=== PATIENT | male | born 1985 | race Caucasian/White ===

== ENCOUNTER 2016-12-14 13:17 | Emergency (ER) | payer SELFPAY ==
[~2016-12-14] VITALS: Ht 172.7 cm; Wt 75.0 kg
[2016-12-14] MEDS ORDERED: ONDANSETRON HCL 4MG/2ML VIAL IV ONE (14:15)
[2016-12-14] MEDS ORDERED: MORPHINE SULFATE 1MG/ML 1ML INJ SYR(NEO) IV ONE (14:15)
[2016-12-14] MEDS ORDERED: KETOROLAC 15MG/ML VIAL IV ONE (14:15)
[2016-12-14] MEDS ORDERED: MORPHINE SULFATE 4 MG/ML CPJ (NOT FOR IM USE) IV NR (14:46)
[2016-12-14 15:32] LABS: BASOPHILS % 0.8 % (0.0-2.0); EOSINOPHILS % 3.8 % (0.0-5.0); HEMATOCRIT. 42.5 % (42.0-52.0); HEMOGLOBIN. 14.4 g/dL (14.0-18.0); LYMPHOCYTES % 29.9 % (20.0-50.0); MEAN CORPUSCULAR HEMOGLOBIN 28.1 pg (28.0-32.0); MEAN CORPUSCULAR VOLUME 82.9 fL (80.0-94.0); MEAN PLATELET VOLUME 7.8 fl (7.4-10.4); MONOCYTES % 7.2 % (2.0-8.0); NEUTROPHILS % 58.3 % (40.0-76.0); PLATELET 327 x1000/uL (130-400); RED BLOOD CELL COUNT 5.13 mill/uL (4.7-6.1); RED CELL DISTRIBUTION WIDTH 13.3 % (11.6-14.6)
[2016-12-14 15:34] LABS: CHLORIDE 104 mEq/L (98-107)
[2016-12-14 15:38] LABS: CARBON DIOXIDE 30 mEq/L (21-32)
[2016-12-14 16:59] VITALS: BP 122/77
== END 2016-12-14 19:06 | disposition home or self-care (01) ==
LOC: ER 14:07
DX: S22.32XA Fracture of one rib, left side, initial encounter for closed fracture (principal); W19.XXXA Unspecified fall, initial encounter; Y93.51 Activity, roller skating (inline) and skateboarding; Y92.89 Other specified places as the place of occurrence of the external cause; Y99.8 Other external cause status
CPT/HCPCS: 36415; 71250; 80053; 85025; 96374; 96375; 99285; J1885; J2270; J2405

== ENCOUNTER 2024-10-04 05:45 | Emergency (ER) | payer MEDICAID, OTHER ==
[~2024-10-04] VITALS: Ht 172.7 cm; Wt 100.0 kg
[2024-10-04 05:53] VITALS: O2SAT 98
[2024-10-04 07:28] LABS: CREATININE 0.9 mg/dL (0.6-1.3)
[2024-10-04 07:29] LABS: UREA NITROGEN BLOOD 9 mg/dL (9-23)
[2024-10-04 07:30] LABS: ASPARTATE AMINOTRANSFERASE 23 IU/L (<34)
[2024-10-04 07:31] LABS: BILIRUBIN DIRECT 0.2 mg/dL (<=3.0); BILIRUBIN TOTAL 0.7 mg/dL (0.1-1.0); PROTEIN TOTAL 7.8 g/dL (6.0-8.3)
[2024-10-04 07:41] LABS: BASOPHILS % 0.4 % (0.0-2.0); EOSINOPHILS % 0.4 % (0.0-5.0); HEMATOCRIT. 41.8 % (42.0-52.0); HEMOGLOBIN. 14.3 g/dL (14.0-18.0); LYMPHOCYTES % 12.0 % (20.0-50.0); MEAN PLATELET VOLUME 7.9 fl (7.4-10.4); MONOCYTES % 4.4 % (2.0-8.0); NEUTROPHILS % 82.8 % (40.0-76.0); PLATELET 281 x1000/uL (130-400); RED BLOOD CELL COUNT 5.05 mill/uL (4.7-6.1); RED CELL DISTRIBUTION WIDTH 13.0 % (11.6-14.6)
[2024-10-04 07:42] LABS: CLARITY URINE CLEAR (CLEAR); COLOR URINE YELLOW (YELLOW); GLUCOSE URINE NEGATIVE (NEGATIVE); KETONES URINE NEGATIVE (NEGATIVE); LEUKOCYTE ESTERASE URINE NEGATIVE (NEGATIVE); NITRITE URINE NEGATIVE (NEGATIVE); OCCULT BLOOD URINE 3+ (NEGATIVE); PH URINE 6.5 (4.5-8.0); PROTEIN URINE NEGATIVE (NEGATIVE); SPECIFIC GRAVITY URINE 1.019 (1.005-1.030); UROBILINOGEN URINE 0.2 E.U./dL (0.2-1.0)
[2024-10-04 08:07] LABS: MUCUS URINE 2+ /lpf (NONE/TRACE); RBC URINE TNTC /hpf (0-2); SQUAMOUS EPITHELIAL CELL URINE RARE /lpf (RARE/1+)
[2024-10-04 08:09] LABS: BACTERIA URINE TRACE; WBC URINE 0-2 /hpf (0-2)
[2024-10-04 08:26] VITALS: BP 130/78; PULSE 80; RESP 18; TEMP 36.9; O2SAT 98
== END 2024-10-04 08:27 | disposition home or self-care (01) ==
LOC: ER 05:45
DX: R10.9 Unspecified abdominal pain (principal); F12.10 Cannabis abuse, uncomplicated; F15.10 Other stimulant abuse, uncomplicated
CPT/HCPCS: 36415; 80048; 80076; 81003; 85025; 99283

== ENCOUNTER 2024-10-09 16:06 | Emergency (ER) | payer OTHER ==
[~2024-10-09] VITALS: Ht 172.7 cm; Wt 99.0 kg
[2024-10-09 16:09] VITALS: O2SAT 97
[2024-10-09 16:16] VITALS: TEMP 36.8; O2SAT 98
[2024-10-09 16:33] LABS: CLARITY URINE CLEAR (CLEAR); COLOR URINE DARK YELLOW (YELLOW); GLUCOSE URINE NEGATIVE (NEGATIVE); KETONES URINE TRACE (NEGATIVE); LEUKOCYTE ESTERASE URINE NEGATIVE (NEGATIVE); NITRITE URINE NEGATIVE (NEGATIVE); OCCULT BLOOD URINE NEGATIVE (NEGATIVE); PH URINE 5.5 (4.5-8.0); PROTEIN URINE TRACE (NEGATIVE); SPECIFIC GRAVITY URINE 1.022 (1.005-1.030); UROBILINOGEN URINE 0.2 E.U./dL (0.2-1.0)
[2024-10-09 17:07] LABS: BASOPHILS % 0.8 % (0.0-2.0); EOSINOPHILS % 1.6 % (0.0-5.0); HEMATOCRIT. 40.9 % (42.0-52.0); HEMOGLOBIN. 13.9 g/dL (14.0-18.0); LYMPHOCYTES % 39.4 % (20.0-50.0); MEAN PLATELET VOLUME 7.4 fl (7.4-10.4); MONOCYTES % 6.2 % (2.0-8.0); NEUTROPHILS % 52.0 % (40.0-76.0); PLATELET 277 x1000/uL (130-400); RED BLOOD CELL COUNT 4.89 mill/uL (4.7-6.1); RED CELL DISTRIBUTION WIDTH 13.0 % (11.6-14.6)
[2024-10-09 17:10] LABS: AMORPHOUS SEDIMENT URINE 2+ /lpf; BACTERIA URINE 2+; RBC URINE 0-2 /hpf (0-2); SQUAMOUS EPITHELIAL CELL URINE FEW /lpf (RARE/1+); WBC URINE NONE SEEN /hpf (0-2)
[2024-10-09 17:34] LABS: CREATININE 0.9 mg/dL (0.6-1.3)
[2024-10-09 17:35] LABS: UREA NITROGEN BLOOD 8 mg/dL (9-23)
[2024-10-09 17:36] LABS: ASPARTATE AMINOTRANSFERASE 19 IU/L (<34)
[2024-10-09 17:37] LABS: BILIRUBIN DIRECT 0.4 mg/dL (<=3.0); BILIRUBIN TOTAL 1.2 mg/dL (0.1-1.0); PROTEIN TOTAL 7.5 g/dL (6.0-8.3)
[2024-10-09 17:42] VITALS: BP 115/76; PULSE 67; RESP 16
[2024-10-09] MEDS: KETOROLAC 15MG/ML VIAL IV ONE (17:42)
[2024-10-09] MEDS ORDERED: NAPR-679 MT (19:30)
[2024-10-09] MEDS ORDERED: ACET-2708 MT (19:30)
[2024-10-09] MEDS ORDERED: IOHEXOL-300 100 ML BOTTLE ONE ×2 (20:36→22:54)
== END 2024-10-09 19:50 | disposition home or self-care (01) ==
LOC: ER 16:06
DX: N20.9 Urinary calculus, unspecified (principal); F12.90 Cannabis use, unspecified, uncomplicated; F15.90 Other stimulant use, unspecified, uncomplicated
CPT/HCPCS: 80076; 80048; 81003; 82550; 83690; 85025; 36415; 74177; 96374; 99285; Q9967; J1885; Z7610